=== PATIENT | male | born 1990 | race American Indian/Alaskan Native ===

== ENCOUNTER 2016-11-21 13:16 | Emergency (ER) | payer SELFPAY ==
[2016-11-21 13:28] VITALS: BP 168/100
== END 2016-11-21 13:30 | disposition left against medical advice (07) ==
LOC: ED 13:16
DX: R51 Headache (principal); Z53.21 Procedure and treatment not carried out due to patient leaving prior to being seen by health care provider

== ENCOUNTER 2017-07-28 09:52 | Emergency (ER) | payer SELFPAY ==
[2017-07-28 10:14] VITALS: BP 136/91
[2017-07-28] MEDS ORDERED: REGLAN IV ONE (10:29)
[2017-07-28] MEDS ORDERED: TYLENOL PO ONE (10:29)
--- NOTE | 2017-07-28 10:29 | Emergency Department Report ---
ED Headache HPI - General Chief Complaint: Headache Stated Complaint: HEADACHE Time Seen by Provider: 07/28/17 10:28 - History of Present Illness Initial Comments: 27-year-old male presents with complaint of right-sided headache. Patient states that he has been experiencing intermittent headaches right frontal head for approximately 3 years. Occurs on a weekly basis. States that headaches last for a few minutes are gradual onset frontal throbbing. Denies nausea or vomiting denies upper or lower extremity paresthesias or facial paresthesias. Denies blurry vision or dizziness. States he has been taking [id number] Tylenol and Goody powder with minimal relief of his headaches. Patient states that headache is currently 4 out of 10 gradual onset and has been ongoing for nearly 1 week. Patient is awake alert and oriented 3 ambulatory and denies palpitations dysuria chest pain shortness of breath nausea or vomiting. States he wants a referral to primary care as he does not currently have a primary care doctor. Timing/Duration: episodic Quality: moderate Recent Head Trauma: frequent headaches, chronic headaches Allergies/Adverse Reactions: Allergies No Known Allergies Allergy (Verified 02/12/14 00:19) Home Medications: Ambulatory Orders Acetaminophen/Codeine [Tylenol #3] 1 tab PO Q6H PRN #20 tab 04/16/15 Ibuprofen [Motrin 600 MG tab] 600 mg PO Q8H PRN #40 tablet 04/16/15 Penicillin Vk [Veetids TAB] 500 mg PO QID #40 tablet 04/16/15 Fluticasone [Flonase] 1 spray NS QDAY PRN #1 bottle 07/28/17 Loratadine [Claritin] 10 mg PO DAILY PRN #30 tablet 07/28/17 Naproxen 500 mg PO BID PRN #30 tablet 07/28/17 ED Review of Systems ROS: Stated complaint: HEADACHE Other details as noted in HPI Constitutional: denies: chills, fever Eyes: denies: eye pain, eye discharge, vision change ENT: denies: ear pain, throat pain Respiratory: denies: cough, shortness of breath, wheezing Cardiovascular: denies: chest pain, palpitations Endocrine: no symptoms reported Gastrointestinal: denies: abdominal pain, nausea, diarrhea Genitourinary: denies: urgency, dysuria Musculoskeletal: denies: back pain, joint swelling, arthralgia Skin: denies: rash, lesions Neurological: as per HPI, headache (intermittent right-sided headaches for 3 years). denies: weakness, paresthesias Psychiatric: denies: anxiety, depression Hematological/Lymphatic: denies: easy bleeding, easy bruising ED Past Medical Hx - Past Medical History Previous Medical History?: No - Surgical History Past Surgical History?: No - Social History Smoking Status: Former Smoker Substance Use Type: Alcohol - Medications Home Medications: Home Medications Medication Instructions Recorded Confirmed Last Taken Type Acetaminophen/Codeine [Tylenol #3] 1 tab PO Q6H PRN #20 tab 04/16/15 Unknown Rx Ibuprofen [Motrin 600 MG tab] 600 mg PO Q8H PRN #40 tablet 04/16/15 Unknown Rx Penicillin Vk [Veetids TAB] 500 mg PO QID #40 tablet 04/16/15 Unknown Rx Fluticasone [Flonase] 1 spray NS QDAY PRN #1 bottle 07/28/17 Unknown Rx Loratadine [Claritin] 10 mg PO DAILY PRN #30 tablet 07/28/17 Unknown Rx Naproxen 500 mg PO BID PRN #30 tablet 07/28/17 Unknown Rx ED Physical Exam - General Limitations: No Limitations General appearance: alert, in no apparent distress - Head Head exam: Present: atraumatic, normocephalic - Eye Eye exam: Present: normal appearance, PERRL, EOMI - ENT ENT exam: Present: mucous membranes moist - Neck Neck exam: Present: normal inspection - Respiratory Respiratory exam: Present: normal lung sounds bilaterally. Absent: respiratory distress - Cardiovascular Cardiovascular Exam: Present: regular rate, normal rhythm. Absent: systolic murmur, diastolic murmur, rubs, gallop - GI/Abdominal GI/Abdominal exam: Present: soft, normal bowel sounds - Rectal Rectal exam: Present: deferred - Extremities Exam Extremities exam: Present: normal inspection - Back Exam Back exam: Present: normal inspection - Neurological Exam Neurological exam: Present: alert, oriented X3, CN II-XII intact, normal gait - Expanded Neurological Exam Expanded Patient oriented to: Present: person, place, time Cranial nerves: EOM's Intact: Normal, Facial Sensation: Normal Cerebellar function: Finger to Nose: Normal Sensory exam: Upper Extremity Light Touch: Normal, Lower Extremity Light Touch: Normal Motor strength exam: RUE: 5, LUE: 5, RLE: 5, LLE: 5 DTR: bicep (R): 3+, bicep (L): 3+, tricep (R): 3+, tricep (L): 3+, knee (R): 3+ , knee (L): 3+ Best Eye Response ([place]): (4) open spontaneously Best Motor Response ([place]): (6) obeys commands Best Verbal Response ([place]): (5) oriented [place] Total: 15 - Psychiatric Psychiatric exam: Present: normal affect, normal mood - Skin Skin exam: Present: warm, dry, intact, normal color. Absent: rash ED Course Vital Signs 07/28/17 10:09 Temperature 98.5 F Pulse Rate 71 Respiratory 18 Rate Blood Pressure 136/91 O2 Sat by Pulse 99 Oximetry ED Medical Decision Making - Medical Decision Making A/P: migraine headache 1-patient has no neurological deficits.Cranial nerves 2, 3, 4, 5, 6, 7, 8,10, 11 , 12 intact on clinical exam, patient is fully lucid awake alert and oriented 3 conversant. Denies any upper or lower extremity paresthesias and has 5/5 strength in bilateral upper and lower extremities on clinical exam. 2- follow-up with primary care, I gave pt info for [place] [facility] 3- patient given precautions, instructed to return to the ED for any confusion, lethargy, chest pain, shortness of breath, abdominal pain, inability to tolerate by mouth, paresthesias, inability to ambulate. 4- pt independently ambulatory without assistance upon discharge. HEadache 0/10 , good response to tylenol and reglan 5- CT scan unremarkable, possible sinusoidal edema, will give antihistamines Critical care attestation.: If time is entered above; I have spent that time in minutes in the direct care of this critically ill patient, excluding procedure time. ED Disposition Clinical Impression: Headache Qualifiers: Headache type: unspecified Headache chronicity pattern: acute headache Intractability: not intractable Qualified Code(s): R51 - Headache Disposition: DC-01 TO HOME OR SELFCARE Is pt being admited?: No Does the pt Need Aspirin: No Condition: Stable Instructions: Acute Headache (ED), Migraine Headache (ED) Additional Instructions: [email or web address] Prescriptions: Fluticasone [Flonase] 1 spray NS QDAY PRN #1 bottle PRN Reason: Congestion Loratadine [Claritin] 10 mg PO DAILY PRN #30 tablet PRN Reason: Congestion Naproxen 500 mg PO BID PRN #30 tablet PRN Reason: Headache Referrals: PRIMARY CARE,MD [Primary Care Provider] - 3-5 Days [facility] [Outside[facility] - 3-5 Days [facility] [Outside] - 3-5 Days Forms: Work/School Release Form(ED) Time of Disposition: 12:00
--- NOTE | 2017-07-28 10:55 | Cat Scan Report ---
CT scan of the head without IV contrast: Findings: Ventricles are normal in size and midline in location. No evidence of previous female, hemorrhage or mass. No extra-axial fluid collection. Normal brainstem and cerebellum. Mucosal edema of the ethmoid sinuses. Normal sphenoid sinus and maxillary sinuses. Normal mastoid air cells. Impression: No acute intracranial abnormality. Sinus disease
== END 2017-07-28 12:16 | disposition home or self-care (01) ==
LOC: ED 09:52
DX: G43.909 Migraine, unspecified, not intractable, without status migrainosus (principal); F10.10 Alcohol abuse, uncomplicated; Z87.891 Personal history of nicotine dependence
CPT/HCPCS: 70450; 96374; 99283; J2765